=== PATIENT | female | born 1975 | race American Indian/Alaskan Native ===

== ENCOUNTER 2019-07-11 16:11 | Emergency (ER) | payer SELFPAY ==
--- NOTE | 2019-07-11 16:49 | Event Note ---
ED Screening Note Date of service: 07/11/19 Time: 16:48 ED Screening Note: C/o SOB x 1 month denies CP denies hx of DVT/PE/SC Also c/o right hand pain x 5 days--states fell This initial assessment/diagnostic orders/clinical plan/treatment(s) is/are subject to change based on patients health status, clinical progression and re- assessment by fellow clinical providers in the ED. Further treatment and workup at subsequent clinical providers discretion. Patient/guardian urged not to elope from the ED as their condition may be serious if not clinically assessed and managed. Initial orders include: XR labs
[2019-07-11 16:50] VITALS: BP 136/94
[2019-07-11 19:31] LABS: Hematocrit 39.1 % (30.3-42.9); Hemoglobin 13.5 gm/dl (10.1-14.3); Mean Corpuscular HGB Conc 35 % (30-34); Mean Corpuscular Volume 96 fl (79-97); Platelet Count 256 K/mm3 (140-440); Red Blood Count 4.07 M/mm3 (3.65-5.03)
[2019-07-11] MEDS ORDERED: ACETAMINOPHEN 500 MG TAB PO ONE (19:42)
[2019-07-11] MEDS ORDERED: predniSONE 20 MG TAB PO ONE (19:42)
[2019-07-11] MEDS ORDERED: IBUPROFEN 400 MG TAB PO ONE (19:42)
[2019-07-11 19:51] LABS: Alanine Aminotransferase 18 units/L (7-56); Albumin 4.3 g/dL (3.9-5); BUN/Creatinine Ratio 14; Blood Urea Nitrogen 10 mg/dL (7-17); Calcium 9.2 mg/dL (8.4-10.2); Hemolysis Index 9
--- NOTE | 2019-07-11 21:16 | XRay Report ---
XR RIGHT HAND 3 VIEWS INDICATION / CLINICAL INFORMATION: MAIN: bruising/swelling after fall pt c/o pt also c/o right hand pain that started after falling frid ay after tripping on curb. rr even and nonlabored. skin warm and dry; surgery 2007 COMPARISON: None available. FINDINGS: BONES / JOINT(S): No acute displaced fracture or subluxation. Prior internal fixation of the fifth me tacarpal with dorsal plate and screws. No evidence of hardware loosening or failure. No significant a rthritis. SOFT TISSUES: No significant abnormality. ADDITIONAL FINDINGS: None. Signer Name: Janet Greenberg MD Signed: 07/11/2019 9:12 PM Workstation Name: [id number]
--- NOTE | 2019-07-11 21:17 | XRay Report ---
CHEST 2 VIEWS INDICATION / CLINICAL INFORMATION: MAIN: shortness of breath pt c/o shortness of breath x 1 month. pt denies cough. pt denies chest pain @ present. rr even and nonlabored. skin warm and dry. . COMPARISON: None available. FINDINGS: SUPPORT DEVICES: None. HEART / MEDIASTINUM: No significant abnormality. LUNGS / PLEURA: No significant pulmonary or pleural abnormality. No pneumothorax. ADDITIONAL FINDINGS: Cholecystectomy clips. IMPRESSION: 1. No acute findings. Signer Name: Janet Greenberg MD Signed: 07/11/2019 9:12 PM Workstation Name: [id number]
--- NOTE | 2019-07-11 22:14 | Emergency Department Report ---
ED Fall HPI - General Chief Complaint: Dyspnea/Respdistress Stated Complaint: SOB/RT HAND INJURY Time Seen by Provider: 07/11/19 16:47 Source: patient Mode of arrival: Ambulatory - History of Present Illness Initial Comments: Patient is a 43-year-old -Prydeinig female with no past medical history who presents to the ED with Nikki of acute onset persistent severe right hand pain and swelling after she slipped and fell down when intoxicated on alcohol 5 days ago. Patient also complains of pleuritic chest wall pain with dry cough and shortness of breath for 2 months intermittently. Patient denies dizziness, fever, chills, nausea, vomiting, abdominal pain, syncope, palpitations, sore throat, diarrhea, loss of consciousness, numbness and tingling or weakness of upper and lower extremities bilaterally. 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 denies: headache, neck pain, numbness, weakness, chest paint, abdominal pain, hematuria, unable to walk, lightheaded, vertigo, confusion - Related Data Previous Rx's Medication Instructions Recorded Last Taken Type Cyclobenzaprine [Flexeril] 10 mg PO Q8H PRN #15 tablet 07/11/19 Unknown Rx Ibuprofen [Motrin] 800 mg PO Q8HR PRN #24 tablet 07/11/19 Unknown Rx Allergies Allergy/AdvReac Type Severity Reaction Status Date / Time No Known Allergies Allergy Unverified 07/11/19 16:13 ED Review of Systems ROS: Stated complaint: SOB/RT HAND INJURY Other details as noted in HPI Constitutional: denies: chills, fever Eyes: denies: eye pain, eye discharge, vision change ENT: denies: ear pain, throat pain Respiratory: cough, shortness of breath. denies: wheezing Cardiovascular: denies: chest pain, palpitations Endocrine: no symptoms reported Gastrointestinal: denies: abdominal pain, nausea, diarrhea Genitourinary: denies: urgency, dysuria, discharge Musculoskeletal: joint swelling (right hand swelling), arthralgia (right hand pain). denies: back pain Skin: denies: rash, lesions Neurological: denies: headache, weakness, paresthesias Psychiatric: denies: anxiety, depression Hematological/Lymphatic: denies: easy bleeding, easy bruising ED Past Medical Hx - Past Medical History Previous Medical History?: Yes Additional medical history: connective tissue disease. fibromyalgia - Surgical History Past Surgical History?: Yes Hx Cholecystectomy: Yes Additional Surgical History: right hand surgery- plates and screws. hysterectomy. x 1. hernia repair - Social History Smoking Status: Never Smoker Substance Use Type: Alcohol - Medications Home Medications: Home Medications Medication Instructions Recorded Confirmed Last Taken Type Cyclobenzaprine [Flexeril] 10 mg PO Q8H PRN #15 tablet 07/11/19 Unknown Rx Ibuprofen [Motrin] 800 mg PO Q8HR PRN #24 tablet 07/11/19 Unknown Rx ED Physical Exam - General Limitations: No Limitations General appearance: alert, in no apparent distress - Head Head exam: Present: atraumatic, normocephalic - Eye Eye exam: Present: normal appearance, PERRL, EOMI Pupils: Present: normal accommodation - ENT ENT exam: Present: normal exam, normal orophraynx, mucous membranes moist, TM's normal bilaterally, normal external ear exam - Neck Neck exam: Present: normal inspection, full ROM - Respiratory Respiratory exam: Present: normal lung sounds bilaterally. Absent: respiratory distress, wheezes, rales, rhonchi, chest wall tenderness, accessory muscle use, decreased breath sounds - Cardiovascular Cardiovascular Exam: Present: regular rate, normal rhythm, normal heart sounds. Absent: systolic murmur, diastolic murmur, rubs, gallop - GI/Abdominal GI/Abdominal exam: Present: soft, normal bowel sounds. Absent: tenderness, rebound, hyperactive bowel sounds, hypoactive bowel sounds, organomegaly - Extremities Exam Extremities exam: Present: normal inspection, full ROM, tenderness (Palpable jerrica rin right hand tenderness and mild swelling), normal capillary refill, joint swelling (Mildly swollen dorsal right hand ) - Back Exam Back exam: Present: normal inspection, full ROM. Absent: tenderness, CVA tenderness (R), muscle spasm, paraspinal tenderness, vertebral tenderness - Neurological Exam Neurological exam: Present: alert, oriented X3, CN II-XII intact, normal gait, reflexes normal - Psychiatric Psychiatric exam: Present: normal affect, normal mood - Skin Skin exam: Present: warm, dry, intact, normal color, ecchymosis (dorsal right hand). Absent: rash ED Course Vital Signs 07/11/19 16:48 Temperature 97.6 F Pulse Rate 79 Respiratory 20 Rate Blood Pressure 136/94 O2 Sat by Pulse 99 Oximetry ED Medical Decision Making - Lab Data Result diagrams: 07/11/19 19:18 07/11/19 19:18 - Radiology Data Radiology results: report reviewed, image reviewed Chest x-ray shows no acute cardiopulmonary abnormalities or pneumonitis. Right hand x-ray shows no acute fractures or subluxations. The previous ORIF hardware are intact with no sign of loosening. - Medical Decision Making This is a 43-year-old female who presented to the ED with complaint of right hand pain and swelling of the she slipped and fell down when drunk or alcohol 5 days ago. Patient also complained of persistent dry cough with pleuritic chest wall pain and shortness of breath. In the ED, patient is alert and oriented 3 and is not in distress. Patient was treated for pain and right hand x-ray shows no acute fractures or subluxations. The prior ORIF procedure hardwares in place. Lab test results were also reviewed and are nonactionable. Patient was discharged home on pain medications and muscle relaxants and advised follow-up with her primary care physician in 5-7 days for reevaluation or return to the ED immediately if symptoms get worse. - Differential Diagnosis Hand fracture; Muscle strain; Muscle spasm; Rib fractures; Pneumonia Critical care attestation.: If time is entered above; I have spent that time in minutes in the direct care of this critically ill patient, excluding procedure time. ED Disposition Clinical Impression: Pleuritic chest pain Sprain of right hand Qualifiers: Encounter type: initial encounter Qualified Code(s): S63.91XA - Sprain of unspecified part of right wrist and hand, initial encounter Contusion of right hand including fingers Qualifiers: Encounter type: initial encounter Qualified Code(s): S60.221A - Contusion of right hand, initial encounter; S60.00XA - Contusion of unspecified finger without damage to nail, initial encounter Disposition: TO HOME OR SELFCARE Is pt being admited?: No Does the pt Need Aspirin: No Condition: Stable Instructions: Chest Pain (ED), Costochondritis (ED), Hand Sprain (ED) Additional Instructions: Take medications with food, drink plenty of fluids and follow-up with your primary care physician in 7-10 days for reevaluation. Return to the ED immed iately if symptoms get worse. Prescriptions: Cyclobenzaprine [Flexeril] 10 mg PO Q8H PRN #15 tablet PRN Reason: Muscle Spasm Ibuprofen [Motrin] 800 mg PO Q8HR PRN #24 tablet PRN Reason: Pain , Severe (7-10) Referrals: PRIMARY CARE,MD [Primary Care Provider] - 3-5 Days Time of Disposition: 22:13 Print Language: PASHTO
== END 2019-07-11 22:28 | disposition home or self-care (01) ==
LOC: ED 16:11
DX: S60.221A Contusion of right hand, initial encounter (principal); R07.81 Pleurodynia; Z90.49 Acquired absence of other specified parts of digestive tract; W01.0XXA Fall on same level from slipping, tripping and stumbling without subsequent striking against object, initial encounter; Y93.89 Activity, other specified; Y92.89 Other specified places as the place of occurrence of the external cause; Y99.8 Other external cause status
CPT/HCPCS: 36415; 71046; 73130; 80053; 84484; 84703; 85027; J7512